=== PATIENT | female | born 1975 | race Caucasian/White ===

== ENCOUNTER → 2022-12-13 | Outpatient (CLI) | payer OTHER ==
[~2022-12-13] MED LIST: ALBU8HFA2 INH; FLUT.05NI; GUANFACINE HCL E2 MG PO; MONDOXYNE NL100 MG PO; MONT10T PO
== END | disposition home or self-care (01) ==
LOC: LAB 08:15 → LAB SHORT 08:15
DX: H93.8X1 Other specified disorders of right ear (principal); H93.8X9 Other specified disorders of ear, unspecified ear
CPT/HCPCS: 87070; 87077; 87147; 87186; 87205

== ENCOUNTER 2022-12-22 07:00 | Day surgery (SDC) | payer OTHER ==
[~2022-12-22] VITALS: Ht 160 cm; Wt 48.2 kg
[2022-12-22] MEDS ORDERED: MONDOXYNE NL100 MG PO (07:35)
[2022-12-22] MEDS ORDERED: GUANFACINE HCL E2 MG PO (07:35)
[2022-12-22] MEDS ORDERED: FLUT.05NI (07:36)
[2022-12-22] MEDS ORDERED: MONT10T PO (07:36)
[2022-12-22] MEDS ORDERED: ALBU8HFA2 INH (07:37)
[2022-12-22 08:58] VITALS: BP 99/57
--- NOTE | 2022-12-22 09:00 | NUR ---
12/22/22 0900 Soraya Miller IV DC'D CATH INTACT. PT TOLERATED WELL. COBAN/GAUZE IN PLACE
== END 2022-12-22 09:00 | disposition home or self-care (01) ==
LOC: ORSCSDS 07:00
PROVIDERS: Specialist
PROC: 0DJD8ZZ Inspection of Lower Intestinal Tract, Via Natural or Artificial Opening Endoscopic (ICD-10-PCS; principal; 2022-12-22 08:00)
DX: Z12.11 Encounter for screening for malignant neoplasm of colon (principal); J45.909 Unspecified asthma, uncomplicated; K64.8 Other hemorrhoids; K57.30 Diverticulosis of large intestine without perforation or abscess without bleeding; Z79.899 Other long term (current) drug therapy
CPT/HCPCS: J2704; J7120